=== PATIENT | male | born 1960 | race African-American/Black ===

== ENCOUNTER 2018-04-23 06:00 | Inpatient (IN) | payer OTHER ==
[2018-04-18 13:26] LABS: CALCIUM 8.7 mg/dL (8.4-11.0); CREATININE 1.17 mg/dL (0.55-1.30)
[2018-04-18 13:28] LABS: PROTHROMBIN TIME 9.9 SECS (9.5-12.5)
[2018-04-18 13:41] LABS: BASOPHILS # (AUTO) 0.1 K/uL (0.0-0.2); EOSINOPHILS # (AUTO) 0.1 K/uL (0.0-0.4); EOSINOPHILS % (AUTO) 2.2 % (0.0-4.0); HEMATOCRIT 41.3 % (36-54); HEMOGLOBIN 13.9 g/dL (14.0-18.0); LYMPHOCYTES # (AUTO) 1.9 K/uL (1.0-5.5); LYMPHOCYTES % (AUTO) 36.7 % (20.5-51.5); MEAN CORPUSCULAR HEMOGLOBIN 30 pg (27-31); MEAN CORPUSCULAR HGB CONC 34 % (32-36); MEAN CORPUSCULAR VOLUME 88 fL (79.0-98.0); MONOCYTES # (AUTO) 0.5 K/uL (0.0-1.0); MONOCYTES % (AUTO) 8.8 % (1.7-9.3); NEUTROPHILS # (AUTO) 2.6 K/uL (1.8-7.7); NEUTROPHILS % (AUTO) 51.3 % (40.0-70.0); PLATELET COUNT (AUTO) 175 K/uL (130-430); RED BLOOD CELL COUNT(AUTO) 4.68 MIL/uL (4.2-6.2); RED CELL DISTRIBUTION WIDTH 13.5 % (9.0-15.0); WHITE BLOOD COUNT (AUTO) 5.2 K/uL (4.8-10.8)
[2018-04-19 08:38] LABS: BILIRUBIN,URINE NEGATIVE (NEGATIVE); BLOOD, URINE NEGATIVE (NEGATIVE); CLARITY/URINE CLEAR (CLEAR); COLOR,URINE YELLOW (YELLOW); GLUCOSE,URINE NEGATIVE (NEGATIVE); KETONES,URINE NEGATIVE (NEGATIVE); LEUKOCYTE ESTERASE ,URINE NEGATIVE (NEGATIVE); NITRITE, URINE NEGATIVE (NEGATIVE); PROTEIN URINE NEGATIVE (NEGATIVE); UROBILINOGEN,URINE 0.2 (0.2-1.0)
[~2018-04-23] VITALS: Ht 177.8 cm; Wt 86.2 kg
[2018-04-23] MEDS ORDERED: CELECOXIB 200 MG CAPSULE ONE (06:27)
[2018-04-23] MEDS ORDERED: ACETAMINOPHEN 500 MG TABLET ONE (06:28)
[2018-04-23] MEDS ORDERED: GABAPENTIN 300 MG CAPSULE ONE (06:28)
[2018-04-23] MEDS ORDERED: oxyCODONE HCL 10 MG TAB.ER.12H PO ONE ×2 (06:29→06:45)
[2018-04-23] MEDS ORDERED: TRANEXAMIC ACID 650 MG TABLET ONE (06:29)
[2018-04-23] MEDS ORDERED: CEFAZOLIN 2 GM IVPB PREMIX 50 ML IV ONE ×2 (06:40→06:45)
[2018-04-23] MEDS ORDERED: TRANEXAMIC ACID 650 MG TABLET PO ONE (06:45)
[2018-04-23] MEDS ORDERED: GABAPENTIN 300 MG CAPSULE PO ONE (06:45)
[2018-04-23] MEDS ORDERED: CELECOXIB 200 MG CAPSULE PO ONE (06:45)
[2018-04-23] MEDS ORDERED: ACETAMINOPHEN 500 MG TABLET PO ONE (06:45)
[2018-04-23] MEDS ORDERED: NACL 0.9% 1,000 ML IV ONE (06:45)
[2018-04-23] MEDS ORDERED: POLYMYXIN 500,000/BACIT.10,000 UNITS in NS IRR 1 L IR ONE (06:53)
[2018-04-23] MEDS ORDERED: AMLO5TAB4 PO (07:11)
[2018-04-23] MEDS ORDERED: HYT1 GT (07:11)
[2018-04-23] MEDS ORDERED: TRANEXAMIC ACID 1,000 MG/10 ML VIAL IV ONE (07:15)
[2018-04-23] MEDS ORDERED: ROPIVACAINE HCL/PF 5 MG/ML 0.5% 30 ML VIAL INJ ONE (07:15)
[2018-04-23] MEDS ORDERED: BUPIVACAINE /PF 0.75% 10 ML VIAL INJ ONE (07:15)
[2018-04-23] MEDS ORDERED: VANCOMYCIN HCL 1000 MG/VIAL IV ONE (07:15)
[2018-04-23] MEDS ORDERED: MIDAZOLAM HCL 5 MG/5 ML VIAL IVP ONE (07:15)
[2018-04-23] MEDS ORDERED: LR 1,000 ML IV.SOLN IV ONE (07:15)
[2018-04-23] MEDS ORDERED: NALBUPHINE HCL 10 MG/ML AMP IVP PRN (08:00)
[2018-04-23] MEDS ORDERED: KETOROLAC TROMETHAMINE 30 MG VIAL IVP PRN (08:00)
[2018-04-23] MEDS ORDERED: DIPHENHYDRAMINE INJ 50 MG/ML VIAL IVP PRN (08:00)
[2018-04-23] MEDS ORDERED: fentaNYL CITRATE/PF 100 MCG/2 ML AMP IVP PRN ×2 (08:00)
[2018-04-23] MEDS ORDERED: ONDANSETRON HCL 4 MG/2 ML VIAL IVP PRN ×2 (08:00)
[2018-04-23] MEDS ORDERED: D5/0.45 NS 1,000 ML IV ONE (09:20)
[2018-04-23] MEDS ORDERED: ACETAMINOPHEN 325 MG TABLET PO PRN ×2 (09:30→12:15)
[2018-04-23] MEDS ORDERED: HYDROcodone/ACETAMIN 7.5-325 MG TAB PO PRN (09:30)
[2018-04-23] MEDS ORDERED: MORPHINE SULFATE 10 MG/ML VIAL IM PRN (09:30)
[2018-04-23] MEDS ORDERED: BISACODYL 10 MG/SUPPOSITORY RC PRN (09:30)
[2018-04-23 10:15] VITALS: BP_SYST 128
[2018-04-23 10:18] VITALS: BP_SYST 128
[2018-04-23] MEDS: ROPIVACAINE 0.2% 550 ML INJ SCH (10:42)
[2018-04-23] MEDS ORDERED: DOLU50TA PO (11:48)
[2018-04-23] MEDS ORDERED: EMTR1TAB12 PO (11:48)
[2018-04-23] MEDS: RIVAROXABAN 10 MG TABLET PO SCH (12:06)
[2018-04-23] MEDS: TIVICAY 50 MG PO SCH (12:15)
[2018-04-23] MEDS ORDERED: MORPHINE 2 MG/ML INJ. SYRINGE IVP PRN (12:15)
[2018-04-23] MEDS ORDERED: EMTRICITABINE TENOFOVIR PO SCH (13:30)
[2018-04-23] MEDS ORDERED: EMTR1TAB17 PO (13:40)
[2018-04-23] MEDS: DESCOVY PO SCH (13:45)
[2018-04-23] MEDS: CEFAZOLIN 1 GM IVPB PREMIX 50 ML IV SCH ×2 (14:46→21:40)
[2018-04-23 15:15] VITALS: BP_SYST 128
[2018-04-23 18:10] VITALS: BP_SYST 128
[2018-04-23 20:00] VITALS: BP_SYST 158
[2018-04-23] MEDS: TERAZOSIN HCL 1 MG CAPSULE (HYTRIN) PO SCH (21:00)
[2018-04-23] MEDS: MORPHINE 4 MG/ML INJ. SYRINGE IVP PRN (21:05)
[2018-04-24] VITALS: BP_SYST 160
[2018-04-24] MEDS: MORPHINE 4 MG/ML INJ. SYRINGE IVP PRN ×2 (05:29→09:27)
[2018-04-24] MEDS: ROPIVACAINE 0.2% 550 ML INJ SCH (07:53)
[2018-04-24 08:00] VITALS: BP_SYST 160
[2018-04-24] MEDS: amLODIPine BESYLATE 5 MG TABLET PO SCH (08:35)
[2018-04-24] MEDS: DESCOVY PO SCH (08:36)
[2018-04-24] MEDS: TIVICAY 50 MG PO SCH (08:36)
[2018-04-24] MEDS: RIVAROXABAN 10 MG TABLET PO SCH (08:38)
[2018-04-24] MEDS ORDERED: amLODIPine BESYLATE 5 MG TABLET PO ONE (09:00)
[2018-04-24] MEDS ORDERED: cloNIDine HCL 0.1 MG TABLET PO PRN (10:30)
[2018-04-24 11:24] VITALS: BP_SYST 171
[2018-04-24] MEDS: OXYCODONE/ACETAMINOPHEN *10*mg/325 mg TABLET PO PRN ×2 (11:43→18:24)
[2018-04-24 15:10] VITALS: BP_SYST 122
[2018-04-24 19:50] VITALS: BP_SYST 182
[2018-04-24] MEDS: TERAZOSIN HCL 1 MG CAPSULE (HYTRIN) PO SCH (19:50)
[2018-04-24 21:00] VITALS: BP_SYST 132
[2018-04-25] VITALS: BP_SYST 124
[2018-04-25] MEDS: ROPIVACAINE 0.2% 550 ML INJ SCH (07:53)
[2018-04-25 08:00] VITALS: BP_SYST 150
[2018-04-25] MEDS: TIVICAY 50 MG PO SCH (09:13)
[2018-04-25] MEDS: DESCOVY PO SCH (09:13)
[2018-04-25] MEDS: amLODIPine BESYLATE 5 MG TABLET PO SCH (09:14)
[2018-04-25] MEDS: RIVAROXABAN 10 MG TABLET PO SCH (09:16)
[2018-04-25] MEDS: OXYCODONE/ACETAMINOPHEN *10*mg/325 mg TABLET PO PRN ×2 (09:18→14:13)
[2018-04-25 12:15] VITALS: BP_SYST 138
[2018-04-25 16:15] VITALS: BP_SYST 125
[2018-04-25 16:22] VITALS: BP_SYST 140
[2018-04-26] MEDS ORDERED: amLODIPine BESYLATE 5 MG TABLET PO SCH (09:00)
== END 2018-04-25 18:30 | DRG 470 ==
LOC: SMU 06:00 → STU 10:42 → SMU 04-24 21:04 → STU 04-25 01:23
PROVIDERS: ADMIT Orthopaedic Surgery; ATTEND Orthopaedic Surgery
PROC: 0SRD0J9 Replacement of Left Knee Joint with Synthetic Substitute, Cemented, Open Approach (ICD-10-PCS; principal; 2018-04-23 07:30)
DX: M17.12 Unilateral primary osteoarthritis, left knee (principal); G89.29 Other chronic pain; I10 Essential (primary) hypertension
CPT/HCPCS: 36415; 71046-TC; 80048; 81003; 85025; 85610-TC; 87081; 88305; 88311; 93005; 97039; 97110-GP; 97116-GP; 97530-GP; J0690; J2250; J2270; J2795; J3370; J3490; J7120